=== PATIENT | male | born 1980 | race Two or more races ===

== ENCOUNTER 2024-04-05 10:17 | Emergency (ER) | payer OTHER, SELFPAY ==
--- NOTE | ~2024-04-05 | CT_ITS ---
EXAMINATION: CT ABDOMEN AND PELVIS WITH CONTRAST CLINICAL INFORMATION: Periumbilical pain COMPARISON: None available. TECHNIQUE: Multidetector volumetric images were obtained from the superior aspect of the liver through the pubic symphysis following administration 85 mL of Omnipaque 350 intravenous contrast. Sagittal and coronal reformatted images were obtained on the technologist's workstation. Oral contrast: No This CT examination was performed using dose optimization techniques as appropriate, variously including the following: *Automated exposure control *Adjustment of mA and/or kV according to patient size (this includes techniques or standardized protocols for targeted exams where dose is matched to indication/reason for exam; i.e. extremities or head) *Use of iterative reconstruction technique DLP: 521 mGy-cm FINDINGS: LUNG BASES: Bibasilar atelectasis. ABDOMINAL AND PELVIC WALL: Unremarkable. LIVER AND BILIARY TREE: Subcentimeter right hepatic lobe hypodensity too small to characterize. GALLBLADDER: Unremarkable. PANCREAS: Unremarkable. SPLEEN: Unremarkable. ADRENAL GLANDS: Unremarkable. KIDNEYS AND URETERS: Unremarkable. GASTROINTESTINAL TRACT: Colonic diverticulosis without evidence of diverticulitis. Normal appendix. VASCULAR: Unremarkable. LYMPH NODES/PERITONEUM: No lymphadenopathy. FREE FLUID: None. BLADDER: Unremarkable. PELVIC VISCERA: Unremarkable. OSSEOUS STRUCTURES: Unremarkable. CT/CT abdomen pelvis w IV con IMPRESSION: No acute findings to explain symptoms of abdominal pain.
[2024-04-05 10:39] VITALS: BP 116/70; PULSE 91; RESP 20; TEMP 36.6; O2SAT 99; BMI 27.4
--- NOTE | 2024-04-05 11:26 | ED.ABDPAIN ---
HPI - Abdominal Pain General Chief Complaint: Abdominal Pain Stated Complaint: abdominal and back pain Time Seen by Provider: 04/05/24 11:16 Source: patient, family, old records reviewed and lang interpreter Mode of arrival: ambulatory Limitations: no limitations History of Present Illness ED Provider: YULIET HPI narrative: 43 yo male with no sig PMH here with c/o abdominal pain x 2+ weeks seen at [facility] 1 week ago dx with panniculitis has been on gabapentin, steroids, NSAID but notes he still has pain. No n/v/d, no fevers. He saw PCP but they stated it seemed fine. Has not seen GI doctor. MD elicited complaint: abdominal pain Onset (ago): month(s) Pain Consistency: intermittent Location: periumbilical and RLQ Severity: moderate Quality: aching Radiation: none Migration to: no migration Exacerbating factors: nothing Relieving factors: movement Context: history of similar episodes Associated symptoms: nausea Treatments prior to arrival: other ([facility] put him on meloxicam, gabapentin, prednisone) Related Data Previous Rx's ?Medication ?Instructions ?Recorded dicyclomine 20 mg tablet 20 mg PO TID PRN abdominal 04/05/24 discomfort #30 tabs Allergies Allergy/AdvReac Type Severity Reaction Status Date / Time No Known Allergies Allergy Verified 04/05/24 10:41 Review of Systems Review of Systems Constitutional : No Weight loss, No Fever, No Chills ENT/Mouth : No sore throat, No Rhinorrhea Eyes: No Swelling, No Redness Cardiovascular : No Chest Pain, No SOB, NoEdema Respiratory : No Cough, No Sputum, No Wheezing Gastrointestinal : Positive Nausea, no Vomiting, no Diarrhea, positive abdominal Pain, No Hematochezia, No Melena Genitourinary : No Dysuria, No Urinary Frequency, No Hematuria, No Urgency Musculoskeletal : No joint pain, No Myalgias, No Joint Swelling Skin : No Skin Lesions, No rash Neuro : No Weakness, No Numbness, No Dizziness, No Headache Psych : No Anxiety/Panic, No Depression All other systems reviewed and are negative. [facility] Past Medical History Attestation statement: The following information was validated with the patient. Source: old records reviewed Medical History Abdominal pain Social History Social History (Updated 04/05/24 @ 12:29 by Bettye Pryor DO) Patient Tobacco Use Status: Tobacco use Unknown Advance Directives: No Advance Directives Information Provided: Yes Physical Exam ED Vital Signs: Vital Signs - 24 hr 04/05/24 10:39 04/05/24 12:00 04/05/24 13:51 Temperature 97.9 F 97.8 F 97.8 F Pulse Rate 91 71 69 Respiratory Rate 20 17 17 Blood Pressure 116/70 116/80 125/77 Pulse Oximetry 99 100 99 Oxygen Delivery Method Room Air Room Air Room Air 04/05/24 14:42 Temperature 97.8 F Pulse Rate 69 Respiratory Rate 17 Blood Pressure 125/77 Pulse Oximetry 99 Oxygen Delivery Method Room Air BMI result Body Mass Index 27.4 Appearance: Alert. Oriented X3. No acute distress. Eyes: Pupils equal, round and reactive to light. ENT: Pharynx normal. Neck: Normal inspection. Neck supple. CVS: Normal heart rate and rhythm. Pulses normal. Respiratory: No respiratory distress. Breath sounds normal. Abdomen: Soft and moderate lower abdominal ttp no rebound or guarding Skin: Skin warm and dry. Normal skin color. Normal skin turgor. Extremities: No lower extremity edema. No calf ttp Neuro: Oriented X 3. No motor deficit. No sensory deficit. Medical Decision Making Medical Decision Making [facility] Narrative: 43 yo male with worsening abdominal pain dx with panniculitis here with c/o continued pain despite recent CT scan at [facility] on prednisone, meloxicam, gabapentin. Notes the pain is worse all day. At this time will need labs, pain control, repeat CT scan for any worsening pathology or diverticulitis Differential Diagnosis Differential Diagnoses: The differential diagnosis associated with the presentation includes diverticulitis, panniculitis Admission/Observation Consideration of admission/observation: Escalation of care including admission/observation considered no acute findings on labs other than WBC count from steroids CT scan negative at this time Lab Data [facility] Lab Attestation statement: I reviewed the patient's lab results. 04/05/24 11:22 04/05/24 11:22 Labs: Lab Results 04/05/24 04/05/24 Range/Units 11:22 12:15 WBC 15.6 H (4.8-10.8) X10*3/uL RBC 5.46 (4.60-5.80) X10*6/uL Hgb 15.7 (14.0-18.0) g/dl Hct 46.7 (42.0-52.0) % MCV 85.5 (80.0-98.0) fL MCH 28.8 (27.0-33.0) pg MCHC 33.6 (31.0-36.0) g/dl RDW 13.0 (11.0-16.0) % Plt Count 337 (160-400) X10*3/uL MPV 10.3 (9.4-12.4) fL Immature Gran % (Auto) 0.6 H (0.0-0.4) % Neut % (Auto) 82.6 H (45-73) % Lymph % (Auto) 10.2 L (20-40) % Carlton % (Auto) 6.2 (2-11) % Eos % (Auto) 0.2 (0-4) % Baso % (Auto) 0.2 (0-2) % Lymph # (Auto) 1.6 (1.2-4.9) X10*3/uL Carlton # (Auto) 1.0 (0.1-1.2) X10*3/uL Eos # (Auto) 0.0 (0.0-0.4) X10*3/uL Baso # (Auto) 0.0 (0.0-0.2) X10*3/uL Abs Immat Gran (auto) 0.10 H (0.00-0.03) X10*3/uL Absolute Neuts (auto) 12.9 H (2.0-8.3) x10*3/uL Absolute Nucleated RBC 0.000 (0.0-0.012) X10*3/uL Nucleated RBC % (auto) 0.0 (0.0-0.2) /100WBC Sodium 140 (135-145) mmol/L Potassium 3.6 (3.3-5.1) mmol/L Chloride 103 (96-108) mmol/L Carbon Dioxide 26 (22-29) mmol/L Anion Gap 15 (12-20) BUN 15 (9-16) mg/dL Creatinine 0.84 (0.5-1.4) mg/dL Estim Creat Clear Calc 112.1 Estimated GFR > 60 Random Glucose 99 (60-115) mg/dL Calcium 9.8 (8.4-10.2) mg/dL Total Bilirubin 0.6 (0.0-1.0) mg/dL Direct Bilirubin 0.2 (0.0-0.5) mg/dL AST 14 (5-37) U/L ALT 33 (0-40) U/L Alkaline Phosphatase 77 (39-117) U/L Total Protein 7.2 (6.5-8.0) g/dL Albumin 4.2 (3.5-5.0) g/dL Lipase 23 (8-78) U/L Urine Color Yellow Urine Appearance Clear Urine pH 6.0 (5.0-9.0) Ur Specific [place] 1.020 (1.005-1.025) Urine Protein Negative (Neg-Trace) mg/dL Urine Glucose (UA) Negative (Negative) mg/dL Urine Ketones Negative (Negative) mg/dL Urine Blood Negative (Negative) Urine Nitrite Negative (Negative) Ur Leukocyte Esterase Negative (Negative) Urine RBC 0-2 (0-2) /HPF Urine WBC 0-5 (0-5) /HPF Ur Squamous Epith Cells 0-2 (0-2) /HPF Urine Bacteria None Seen (None Seen) Hyaline Casts 0-2 (0-2) /LPF Independent Interpretation I performed an independent interpretation of an: CT Scan (no acute findings on CT scan) Radiology Impression Discussion of test interpretation with radiology: I have reviewed the radiologist's reading. Independent Historian Clinical information obtained from an independent historian. History obtained from or confirmed by: Spouse External Record Review External record reviewed: Outpatient record Prescription Management I considered prescription management with: Pain Medication Medications Administered Discontinued Medications Generic Name Dose Route Start Last Admin Trade Name Gama PRN Reason Stop Dose Admin Iohexol 100 ml 04/05/24 12:30 04/05/24 12:30 Iohexol 350 Mg/Ml 100 Ml Infus..Btl IV 04/05/24 12:31 85 ml ONCE ONE Administration Morphine Sulfate 15 mg 04/05/24 12:05 04/05/24 12:31 Morphine Sulfate Immed Release 15 Mg Tablet PO 04/05/24 12:06 15 mg ONCE ONE Administration Discharge Plan Discharge Clinical Impression: Abdominal pain Qualifiers: Abdominal location: periumbilical Qualified Code(s): R10.33 - Periumbilical pain Patient Disposition: Home, Self-Care Instructions: Abdominal Pain (ED) Additional Instructions: return for worsening symptoms labs reassuring at this time no acute findings on CT scan FINDINGS: LUNG BASES: Bibasilar atelectasis. ABDOMINAL AND PELVIC WALL: Unremarkable. LIVER AND BILIARY TREE: Subcentimeter right hepatic lobe hypodensity too small to characterize. GALLBLADDER: Unremarkable. PANCREAS: Unremarkable. SPLEEN: Unremarkable. ADRENAL GLANDS: Unremarkable. KIDNEYS AND URETERS: Unremarkable. GASTROINTESTINAL TRACT: Colonic diverticulosis without evidence of diverticulitis. Normal appendix. VASCULAR: Unremarkable. LYMPH NODES/PERITONEUM: No lymphadenopathy. FREE FLUID: None. BLADDER: Unremarkable. PELVIC VISCERA: Unremarkable. OSSEOUS STRUCTURES: Unremarkable. CT/CT abdomen pelvis w IV con IMPRESSION: No acute findings to explain symptoms of abdominal pain. Prescriptions: New dicyclomine 20 mg tablet 20 mg PO TID PRN (Reason: abdominal discomfort) Qty: 30 0RF Referrals: Jose Paulino MD [Physician] - (call to schedule appointment) Stand Alone Forms: Work/School Release Interventions: ED Discharge Assessment Last Done: 04/05/24 14:42 Discharge Date/Time: 04/05/24 14:43 Print Language: Japanese
[2024-04-05 11:30] LABS: MANUAL DIFF FLAG NO
[2024-04-05 11:31] LABS: Basophils Percent Auto 0.2 % (0-2); Eosinophils Percent Auto 0.2 % (0-4); Hematocrit 46.7 % (42.0-52.0); Hemoglobin 15.7 g/dl (14.0-18.0); Imm Gran Pct Auto 0.6 % (0.0-0.4); Lymphocytes Absolute Auto 1.6 X10*3/uL (1.2-4.9); Lymphocytes Percent Auto 10.2 % (20-40); Mean Corpuscular HGB Conc 33.6 g/dl (31.0-36.0); Mean Corpuscular Hemoglobin 28.8 pg (27.0-33.0); Mean Corpuscular Volume 85.5 fL (80.0-98.0); Mean Platelet Volume 10.3 fL (9.4-12.4); Monocytes Percent Auto 6.2 % (2-11); Neutrophils Absolute Auto 12.9 x10*3/uL (2.0-8.3); Neutrophils Percent Auto 82.6 % (45-73); Platelet Count 337 X10*3/uL (160-400); Red Blood Count 5.46 X10*6/uL (4.60-5.80); White Blood Count 15.6 X10*3/uL (4.8-10.8)
[2024-04-05 12:00] VITALS: BP 116/80; PULSE 71; RESP 17; TEMP 36.6; O2SAT 100
[2024-04-05 12:04] LABS: Alanine Aminotransferase 33 U/L (0-40); Albumin Level 4.2 g/dL (3.5-5.0); Alkaline Phosphatase 77 U/L (39-117); Anion Gap 15 (12-20); Aspartate Amino Transferase 14 U/L (5-37); Bilirubin Direct 0.2 mg/dL (0.0-0.5); Bilirubin Total 0.6 mg/dL (0.0-1.0); Blood Urea Nitrogen 15 mg/dL (9-16); Calcium 9.8 mg/dL (8.4-10.2); Carbon Dioxide 26 mmol/L (22-29); Chloride 103 mmol/L (96-108); Creatinine Clr Calc Pharmacy 112.1; Estimated Glomerular Filt Rate > 60; Glucose Random 99 mg/dL (60-115); Lipase 23 U/L (8-78); Potassium 3.6 mmol/L (3.3-5.1); Sodium 140 mmol/L (135-145); Total Protein 7.2 g/dL (6.5-8.0)
[2024-04-05 12:22] LABS: Appearance Urine Clear; Color Urine Yellow; Glucose Urine UA Negative (Negative); Leukocyte Esterase Urine Negative (Negative); Nitrite Urine Negative (Negative); Urine Blood Negative (Negative); Urine Ketones Negative (Negative); Urine Protein Negative (Neg-Trace)
[2024-04-05 12:24] LABS: Bacteria Urine None Seen (None Seen); Hyaline Casts Urine 0-2 /LPF (0-2); RBC Urine 0-2 /HPF (0-2); Squamous Epithelial Cell Urine 0-2 /HPF (0-2); WBC Urine 0-5 /HPF (0-5)
[2024-04-05] MEDS: iohexoL 350 MG/ML 100 ML INFUS..BTL IV (12:30)
[2024-04-05] MEDS: Morphine Sulfate Immed Release 15 MG TABLET PO (12:31)
[2024-04-05 13:51] VITALS: BP 125/77; PULSE 69; RESP 17; TEMP 36.6; O2SAT 99
[2024-04-05 14:42] VITALS: BP 125/77; PULSE 69; RESP 17; TEMP 36.6; O2SAT 99
== END 2024-04-05 14:43 | disposition home or self-care (01) ==
PROVIDERS: Emergency Provider Emergency Medicine
DX: R10.33 Periumbilical pain (principal); R10.30 Lower abdominal pain, unspecified
CPT/HCPCS: 36415; 74177; 80053; 81001; 82248; 83690; 85025; 99284; 99285; Q9967

== ENCOUNTER 2024-10-08 12:53 | Emergency (ER) | payer OTHER, SELFPAY ==
--- NOTE | ~2024-10-08 | XR_ITS ---
EXAMINATION: XR LUMBOSACRAL SPINE CLINICAL INFORMATION: back pain COMPARISON: None available. TECHNIQUE: Three views of the lumbosacral spine. FINDINGS: Dextroconvex curvature of the lumbar spine. Incomplete fusion of the transverse process of L5-S1. Multilevel endplate sclerosis and marginal osteophyte formation, lower thoracic spine and upper lumbar spine. No acute cortical disruption or gross malalignment. XR/XR lumbar spine 2-3V IMPRESSION: Multilevel thoracolumbar spondylosis without acute fracture on x-ray. Probable sclerosis versus positioning. Electronically signed by: Zenon Fagan MD 10/08/2024 03:48 PM JASWANT VALADEZ
--- NOTE | ~2024-10-08 | XR_ITS ---
EXAMINATION: XR HIP, RIGHT CLINICAL INFORMATION: pain COMPARISON: None available. TECHNIQUE: Two views of the right hip. FINDINGS: No acute cortical disruption or malalignment. No lytic or blastic lesions. Bony pelvis is intact. XR/XR hip RT w PEL1V IMPRESSION: No acute fracture or dislocation, right hip. Electronically signed by: Zenon Fagan MD 10/08/2024 03:49 PM EST
[2024-10-08 12:54] VITALS: BP 114/63; PULSE 85; RESP 18; TEMP 37.3; O2SAT 98; BMI 28.3
--- NOTE | 2024-10-08 12:56 | ED.GENADULT ---
HPI - General Adult General Chief complaint: Extremity Injury, Lower Stated complaint: leg pain Time Seen by Provider: 10/08/24 13:10 Source: patient, RN notes reviewed and oil program compliance specialist Mode of arrival: ambulatory Limitations: language barrier History of Present Illness ED Provider: Julita Wellington PA-C [facility] narrative: This is a [id number]-bengali speaking male who presents to the ED with complaints of right low back pain for the last week. 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 Denies specific movement, lifting episode that caused this pain. Reports that the pain is constant and radiates down his right leg. Pain worsens with movement. He has been taking OTC tylenol with minimal relief. Denies any saddle anesthesias. No urinary or bowel retention or incontinence. No urinary symptoms. No fevers, chills, chest pain, shortness of breath, nausea, vomiting or diarrhea. No hx of IVDA. No other complaints or concerns at this time. MD complaint: Back pain Location: back Radiation: distal Related Data Previous Rx's ?Medication ?Instructions ?Recorded dicyclomine 20 mg tablet 20 mg PO TID PRN abdominal 04/05/24 discomfort #30 tabs acetaminophen 500 mg tablet 1,000 mg (2 x 500 mg) PO Q6H PRN 10/08/24 (Tylenol Extra Strength) pain #30 tabs ibuprofen 600 mg tablet 600 mg PO Q6H PRN pain #30 tabs 10/08/24 lidocaine 4 % topical patch 1 patch topical DAILY PRN pain #30 10/08/24 (AsperFlex (lidocaine)) ea methocarbamol 750 mg tablet 750 mg PO TID 3 days #9 tabs 10/08/24 Allergies Allergy/AdvReac Type Severity Reaction Status Date / Time No Known Allergies Allergy Verified 10/08/24 12:56 Review of Systems Review of Systems: Yes all other systems are reviewed and are negative Constitutional: Constitutional: Reports as per [facility] Past Medical History Medical History Abdominal pain Social History Social History (Updated 04/05/24 @ 12:29 by Bettye Pryor DO) Patient Tobacco Use Status: Tobacco use Unknown Physical Exam ED Vital Signs: Vital Signs - 24 hr 10/08/24 12:54 10/08/24 13:48 10/08/24 14:39 Temperature 99.1 F 98.1 F Pulse Rate 85 77 90 Respiratory Rate 18 16 14 Blood Pressure 114/63 116/77 120/80 Pulse Oximetry 98 97 98 Oxygen Delivery Method Room Air Room Air Room Air 10/08/24 16:29 Temperature 98.1 F Pulse Rate 90 Respiratory Rate 14 Blood Pressure 120/80 Pulse Oximetry 98 Oxygen Delivery Method Room Air BMI result Body Mass Index 28.3 Const General: cooperative, comfortable and no acute distress Orientation/consciousness: patient oriented x3 Limitations: no limitations HENMT Head: Yes normal to inspection, Yes normocephalic and Yes atraumatic Ears: hearing grossly normal bilaterally General nose exam: Normal external nose present Face and sinus: Yes normal facial exam Mouth: Normal oral and palatal mucosa present, oropharynx normal and moist mucous membranes Throat: Yes posterior oropharynx normal Eyes General: appearance normal, both eyes and all related structures Eyelids: Yes eyelids normal Conjunctivae: conjunctivae normal Sclerae: sclerae normal Pupils: Equal, round and reactive pupils present EOM: EOMs intact bilaterally Neck Neck: Yes normal visual inspection, Yes full ROM and Yes no lymphadenopathy Lymphatic: no lymphadenopathy noted Chest Chest palpation & inspection: normal inspection of the chest Resp Effort & Inspection: normal respiratory effort and able to speak in complete sentences Auscultation: clear to auscultation bilaterally, no crackles, no rales, no rhonchi and no wheezes Cardio Rate: regular rate Rhythm: regular rhythm Heart sounds: S1 normal heart sound present and S2 normal heart sound present GI Inspection: Yes normal to inspection General: Yes no CVA tenderness Back/Spine/Pelvis Other: tenderness to palpation overlying the right SI joint. +SLR on the right. DTR 2+, Strength 5/5. Pt ambulatory with steady gait Back: no CVA tenderness Skin General skin exam: no rashes or lesions noted Trauma: no lacerations or abrasions Wounds: no wounds Neuro General: patient oriented x3 and moves all extremities Cranial nerves: Yes Equal, round and reactive pupils present Extrem General: Yes normal to inspection Right upper extremity: normal to inspection Left upper extremity: normal to inspection Right lower extremity: normal to inspection Left lower extremity: normal to inspection Course Course Course Narrative: RME: 44-year-old male presents to ED for right sciatica exacerbation going down right leg without any trauma. Patient states no fever or chills. Patient denies any trouble walking. Patient denies any urinary/bowel incontinence. Patient be evaluated [facility]. Reevaluation(s) Reevaluation #1: spondylosis seen on xrays, discussed with patient. D.C on NSAIDs and muscle relaxants. Given return precautions. Pt stable for d/c. Medications Administered Discontinued Medications Generic Name Dose Route Start Last Admin Trade Name Freq PRN Reason Stop Dose Admin Ketorolac Tromethamine 30 mg 10/08/24 13:41 10/08/24 13:50 Ketorolac Tromethamine 30 Mg/Ml Vial IM 10/08/24 13:42 30 mg ONCE ONE Administration Lidocaine 1 patch 10/08/24 13:41 10/08/24 13:49 Lidocaine 4 % Patch Adh..Patch TRANSDERMA 10/08/24 13:42 1 patch ONCE ONE Administration Protocol Medical Decision Making Medical Decision Making [facility] Narrative: 44 y/o m who presents to the ER with complaints of right low back pain x 1 week. 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 This patient presents with back pain most consistent with lumbar radiculopathy . Differential diagnoses includes lumbago versus musculoskeletal spasm / strain versus sciatica. No back pain red flags on history or physical. Presentation not consistent with malignancy (lack of history of malignancy, lack of B symptoms), fracture (no trauma, no bony tenderness to palpation), cauda equina syndrome (no bowel or urinary incontinence/retention, no saddle anesthesia, no distal weakness), AAA, viscus perforation , pulmonary embolism, renal colic, pyelonephritis (afebrile, no CVAT, no urinary symptoms). Given no xrays on patient, will obtain xrays to r/o bony process. Pt medicated with toradol Differential Diagnosis Differential Diagnoses: The differential diagnosis associated with the presentation includes see above Lab Data [facility] Lab Attestation statement: I reviewed the patient's lab results. Radiology Impression Discussion of test interpretation with radiology: I have reviewed the radiologist's reading. Radiologist Impression: EXAMINATION: XR LUMBOSACRAL SPINE CLINICAL INFORMATION: back pain COMPARISON: None available. TECHNIQUE: Three views of the lumbosacral spine. FINDINGS: Dextroconvex curvature of the lumbar spine. Incomplete fusion of the transverse process of L5-S1. Multilevel endplate sclerosis and marginal osteophyte formation, lower thoracic spine and upper lumbar spine. No acute cortical disruption or gross malalignment. XR/XR lumbar spine 2-3V IMPRESSION: Multilevel thoracolumbar spondylosis without acute fracture on x-ray. Probable sclerosis versus positioning. Electronically signed by: Zenon Fagan MD 10/08/2024 03:48 PM EST RP Dictated By: Zenon Gray MD Signed By: <Electronically signed by Zenon De Leon MD in OV> 10/08/24 1548 DD/ 1341 TD/TT: 10/08/24 1434 Insurance Sales Supervisor: XR/XR hip RT w PEL1V IMPRESSION: No acute fracture or dislocation, right hip. Electronically signed by: Zenon Fagan MD 10/08/2024 03:49 PM EST RP Dictated By: Zenon Gray MD External Record Review External record reviewed: Inpatient record, Office record, Outpatient record, Prior outpatient labs, Prior outpatient radiology, Primary care record and Outside ED record Discharge Plan Discharge Clinical Impression: Right lumbar radiculopathy, Spondylosis Patient Disposition: Home, Self-Care Instructions: Acute Low Back Pain (ED), Lumbar Radiculopathy (ED), Back Pain (ED), Lower Back Exercises (ED) Additional Instructions: You were seen in the emergency department due to back pain. You have signs concerning for lumbar radiculopathy. Your x-ray does not show any broken bones however does show spondylosis. Please take prescribed ibuprofen as directed. Robaxin as a muscle relaxants, take this as needed. This may make you drowsy, do not drink alcohol or drive while taking this medication. Lidoderm patches will also help with your pain. Do not directly apply ice or heat to the area. Gentle stretching, massage can also help. Call your primary care physician tomorrow, as physical therapy can be beneficial for these types of problems. Prescriptions: New ibuprofen 600 mg tablet 600 mg PO Q6H PRN (Reason: pain) Qty: 30 0RF acetaminophen [Tylenol Extra Strength] 500 mg tablet 1,000 mg PO Q6H PRN (Reason: pain) Qty: 30 0RF methocarbamol 750 mg tablet 750 mg PO TID 3 Days Qty: 9 0RF lidocaine [AsperFlex (lidocaine)] 4 % adhesive patch,medicated 1 patch topical DAILY PRN (Reason: pain) Qty: 30 0RF No Action dicyclomine 20 mg tablet 20 mg PO TID PRN (Reason: abdominal discomfort) Qty: 30 0RF Stand Alone Forms: Work/School Release Interventions: ED Discharge Assessment Last Done: 10/08/24 16:29 Discharge Date/Time: 10/08/24 16:29 Print Language: Azerbaijani
[2024-10-08 13:48] VITALS: BP 116/77; PULSE 77; RESP 16; O2SAT 97
[2024-10-08] MEDS: Lidocaine 4 % Patch ADH..PATCH 1 PATCH TRANSDERMA (13:49)
[2024-10-08] MEDS: Ketorolac Tromethamine 30 MG/ML VIAL IM (13:50)
[2024-10-08 14:39] VITALS: BP 120/80; PULSE 90; RESP 14; TEMP 36.7; O2SAT 98
[2024-10-08 16:29] VITALS: BP 120/80; PULSE 90; RESP 14; TEMP 36.7; O2SAT 98
== END 2024-10-08 16:29 | disposition home or self-care (01) ==
PROVIDERS: Emergency Provider Emergency Medicine; PCP Physician Assistant
DX: M47.26 Other spondylosis with radiculopathy, lumbar region (principal); M25.551 Pain in right hip; M54.50 Low back pain, unspecified
CPT/HCPCS: 72100; 73502; 96372; 99284; J1885

== ENCOUNTER → 2024-10-08 13:41 | Outpatient (BNV) | payer OTHER, SELFPAY | PROVIDERS: Emergency Provider Emergency Medicine; PCP Physician Assistant; Visit Provider Radiology Diagnostic Radiology | DX: M25.551 Pain in right hip (principal); M47.895 Other spondylosis, thoracolumbar region | CPT/HCPCS: 72100; 73502 ==

== ENCOUNTER 2025-10-22 11:11 | Emergency (ER) | payer OTHER, SELFPAY ==
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
[2025-10-22 11:15] VITALS: BP 157/68; PULSE 79; RESP 18; TEMP 36.6; O2SAT 97; BMI 26.9
[2025-10-22 11:40] VITALS: BP 157/68; PULSE 79; RESP 18; TEMP 36.6; O2SAT 97
== END 2025-10-22 11:43 | disposition home or self-care (01) ==
PROVIDERS: Emergency Provider Emergency Medicine
DX: M75.91 Shoulder lesion, unspecified, right shoulder (principal); M25.511 Pain in right shoulder
CPT/HCPCS: 99282